=== PATIENT | female | born 1970 | race Caucasian/White ===

== ENCOUNTER 2018-08-24 08:37 | Emergency (ER) | payer MEDICARE, MEDICAID ==
[~2018-08-24] VITALS: Ht 160 cm; Wt 67.6 kg
[2018-08-24 08:42] VITALS: BP 141/93
[2018-08-24] MEDS ORDERED: ibuprofen tablet 400 MG TABLET PO ONE (09:05)
[2018-08-24] MEDS ORDERED: IBUP-1984 PO (09:38)
== END 2018-08-24 10:03 | disposition home or self-care (01) ==
LOC: ER 08:38
DX: S66.912A Strain of unspecified muscle, fascia and tendon at wrist and hand level, left hand, initial encounter (principal); Z91.040 Latex allergy status; Z88.8 Allergy status to other drugs, medicaments and biological substances; Z79.899 Other long term (current) drug therapy; W22.01XA Walked into wall, initial encounter; Y93.89 Activity, other specified; Y92.89 Other specified places as the place of occurrence of the external cause; Y99.8 Other external cause status
CPT/HCPCS: 29125; 73090; 99284